=== PATIENT | female | born 1965 | race Caucasian/White ===

== ENCOUNTER → 2018-03-10 | Outpatient (REF) | LOC: ZLAB.WCH 16:53 | DX: Z01.89 Encounter for other specified special examinations (principal) ==

== ENCOUNTER → 2019-02-16 | Outpatient (CLI) | payer BC ==
[~2019-02-16] VITALS: Ht 157.5 cm; Wt 102.3 kg
[~2019-02-16] MED LIST: ALEVE 220MG220 MG PO; ASPIRIN 81M81 MG/TA2 PO; BYSTOLIC5 MG PO; GLUCOSAMINE & C1 CA2 PO; MULTI VITAMINS1 TAB PO; TYLENOL 500MG500 MG PO; ULTRAM 50MG TAB50 MG PO
[2019-02-16 07:59] VITALS: BP 172/97; PULSE 75
[2019-02-16 09:34] VITALS: BP 152/79; PULSE 98
[2019-02-16 09:35] VITALS: BP 136/76; PULSE 90
[2019-02-16 09:36] VITALS: BP 134/76; PULSE 87
== END ==
LOC: COL.CARD 07:42
DX: R06.02 Shortness of breath (principal); R73.02 Impaired glucose tolerance (oral); I10 Essential (primary) hypertension; E78.2 Mixed hyperlipidemia; M17.0 Bilateral primary osteoarthritis of knee
CPT/HCPCS: A9500; J2785